=== PATIENT | male | born 1960 | race Caucasian/White ===

== ENCOUNTER 2022-08-18 10:35 | Outpatient (CLI) | payer OTHER ==
[2022-08-18 11:06] LABS: CHOL/HDL RATIO 2.6 (<5.0); CHOLESTEROL 119 mg/dL; HDL CHOLESTEROL 45 mg/dL; LDL CHOLESTEROL,CALCULATED 66 mg/dL; LDL/HDL RATIO 1.5 (<3.6); TRIGLYCERIDES 41 mg/dL; VLDL CHOLESTEROL 8 mg/dL
== END 2022-08-18 10:36 | disposition home or self-care (01) ==
LOC: LAB 10:35
PROVIDERS: ATTEND Internal Medicine Cardiovascular Disease
DX: E78.5 Hyperlipidemia, unspecified (principal)
CPT/HCPCS: 36415; 80061; 83721

== ENCOUNTER 2024-02-29 10:08 | Outpatient (CLI) | payer MEDICARE, OTHER ==
[2024-02-29 10:40] LABS: CHOL/HDL RATIO 3.4 (<5.0); CHOLESTEROL 152 mg/dL; HDL CHOLESTEROL 45 mg/dL; LDL CHOLESTEROL,CALCULATED 87 mg/dL; LDL/HDL RATIO 1.9 (<3.6); TRIGLYCERIDES 98 mg/dL; VLDL CHOLESTEROL 20 mg/dL
== END 2024-02-29 10:09 | disposition home or self-care (01) ==
LOC: LAB 10:08
PROVIDERS: ATTEND Nuclear Medicine Nuclear Cardiology
DX: E78.00 Pure hypercholesterolemia, unspecified (principal)
CPT/HCPCS: 36415; 80061; 83721